=== PATIENT | female | born 1970 | race Caucasian/White ===

== ENCOUNTER 2016-11-19 17:23 | Inpatient (IN) | payer SELFPAY ==
[~2016-11-19] VITALS: Ht 157.5 cm; Wt 66.8 kg
[2016-11-19] MEDS ORDERED: SODIUM CHLORIDE 0.9% 1,000 ML IV ONE (17:59)
[2016-11-19] MEDS ORDERED: HYDROmorphone 1 MG/ML, 1ML IV ONE (18:00)
[2016-11-19] MEDS ORDERED: ONDANSETRON 2MG/ML, 2ML IVPush ONE (18:00)
[2016-11-19] MEDS ORDERED: SODIUM CHLORIDE FLUSH 10ML SYR IVF ONE (18:00)
[2016-11-19 18:44] LABS: BLOOD UREA NITROGEN 12 mg/dL (7-18)
[2016-11-19 18:49] LABS: ASPARTATE AMINO TRANSFERASE 9 U/L (15-37)
[2016-11-19 19:07] LABS: DIFF TOTAL CELLS COUNTED 100 CELL DIFF
[2016-11-19 19:10] LABS: VERIFY COUNTS? YES
[2016-11-19] MEDS ORDERED: ONDANSETRON 2MG/ML, 2ML ONE ×2 (20:04→21:48)
[2016-11-19] MEDS ORDERED: HYDROmorphone 1 MG/ML, 1ML ONE (20:04)
[2016-11-19] MEDS ORDERED: OMNIPAQUE 350 MG/ML, 100ML BOTTLE ONE (20:32)
[2016-11-19] MEDS ORDERED: CEFTRIAXONE PMX 1GM/50ML 50 ML IV ONE (21:00)
[2016-11-19] MEDS ORDERED: ACETAMINOPHEN 325 MG TABLET PO PRN (21:30)
[2016-11-19] MEDS ORDERED: HYDROmorphone 1 MG/ML, 1ML IV PRN (21:30)
[2016-11-19] MEDS ORDERED: ONDANSETRON 2MG/ML, 2ML IVPush PRN (21:30)
[2016-11-19] MEDS ORDERED: LABETALOL 5MG/ML, 20ML IV PRN (21:30)
[2016-11-19] MEDS ORDERED: EPHEDRINE 50 MG/ML, 1ML IVPush PRN (21:30)
[2016-11-19] MEDS ORDERED: OXYcodone 5 MG/5 ML ORAL.SOL UDC PO PRN (21:30)
[2016-11-19] MEDS ORDERED: hydrALAzine 20 MG/ML, 1ML IV PRN (21:30)
[2016-11-19] MEDS ORDERED: METOPROLOL 1 MG/ML, 5ML IV PRN (21:30)
[2016-11-19] MEDS ORDERED: METRONIDAZOLE PMX 500MG/100ML 100 ML IV ONE (21:30)
[2016-11-19] MEDS ORDERED: MEPERIDINE/PF 25MG/0.5ML IVPush PRN (21:30)
[2016-11-19] MEDS ORDERED: ALBUTEROL SULFATE 2.5 MG/3 ML NPPB PRN (21:30)
[2016-11-19] MEDS ORDERED: EPINEPHRINE 1 MG/ML, 1ML ONE (21:36)
[2016-11-19] MEDS ORDERED: BUPIVACAINE/PF 0.5% ONE (21:36)
[2016-11-19] MEDS ORDERED: SUCCINYLCHOLINE 20 MG/ML, 10ML ONE (21:48)
[2016-11-19] MEDS ORDERED: ROCURONIUM 10 MG/ML ONE (21:48)
[2016-11-19] MEDS ORDERED: GLYCOPYRROLATE 0.2MG/1ML ONE (21:48)
[2016-11-19] MEDS ORDERED: KETOROLAC 30 MG/1 ML ONE (21:48)
[2016-11-19] MEDS ORDERED: PROPOFOL 10 MG/ML, 20ML ONE (21:48)
[2016-11-19] MEDS ORDERED: NEOSTIGMINE 1 MG/ML, 10ML ONE (21:48)
[2016-11-19] MEDS ORDERED: FENTANYL PF 100 MCG/2ML ONE ×2 (21:59→22:55)
[2016-11-19] MEDS ORDERED: OXYcodone 5 MG/5 ML ORAL.SOL UDC ONE (22:55)
[2016-11-19] MEDS ORDERED: ACETAMINOPHEN 650 MG/20.3 ML UDC ONE (22:55)
[2016-11-19] MEDS: FENTANYL PF 100 MCG/2ML IV PRN ×2 (23:00→23:17)
[2016-11-20] MEDS: MORPHINE MC SCH ×3 (00:30→15:07)
[2016-11-20] MEDS: OXYcodone/APAP 5/325MG TABLET PO PRN ×6 (00:36→20:48)
[2016-11-20] MEDS: PIPERACILLIN/TAZO/PMX 3.375GM 50 ML IV SCH ×4 (01:23→21:59)
[2016-11-20] MEDS ORDERED: IBUP800T PO (03:32)
[2016-11-20] MEDS ORDERED: OXYC-223 PO (03:32)
[2016-11-20] MEDS ORDERED: AMOX1TAB64 PO (03:33)
[2016-11-20 04:13] VITALS: BP 96/61
[2016-11-20 07:20] VITALS: BP 89/59
[2016-11-20 07:32] VITALS: BP 102/56
[2016-11-20] MEDS: ONDANSETRON 2MG/ML, 2ML IV PRN ×2 (13:34→20:00)
[2016-11-20 14:26] VITALS: BP 104/66
[2016-11-20 19:43] VITALS: BP 100/65
[2016-11-21] MEDS: MORPHINE MC SCH ×3 (00:30→07:37)
[2016-11-21] MEDS: OXYcodone/APAP 5/325MG TABLET PO PRN ×3 (01:08→21:55)
[2016-11-21 02:29] VITALS: BP 98/59
[2016-11-21] MEDS: PIPERACILLIN/TAZO/PMX 3.375GM 50 ML IV SCH ×2 (03:43→10:55)
[2016-11-21 05:03] LABS: ASPARTATE AMINO TRANSFERASE 22 U/L (15-37); BLOOD UREA NITROGEN 12 mg/dL (7-18)
[2016-11-21] MEDS: ONDANSETRON 2MG/ML, 2ML IV PRN ×2 (06:37→10:55)
[2016-11-21 07:07] VITALS: BP 101/50
[2016-11-21 12:37] VITALS: BP 103/65
[2016-11-21] MEDS ORDERED: HYDROmorphone 1 MG/ML, 1ML IV PRN (13:30)
[2016-11-21] MEDS ORDERED: PROMETHAZINE 25 MG/ML, 1ML IM PRN (13:30)
[2016-11-21] MEDS: AMOXICILLIN/CLAV 875-125MG TABLET PO SCH (15:10)
[2016-11-21] MEDS ORDERED: POTASSIUM CHLORIDE 40 MEQ in SODIUM CHLORIDE 0.9% 500 ML IV ONE (16:00)
[2016-11-21 20:21] VITALS: BP 111/68
[2016-11-22] MEDS: MORPHINE MC SCH ×2 (00:30→07:18)
[2016-11-22 01:34] VITALS: BP 115/73
[2016-11-22] MEDS: OXYcodone/APAP 5/325MG TABLET PO PRN ×3 (01:51→16:32)
[2016-11-22] MEDS: ONDANSETRON 2MG/ML, 2ML IV PRN (01:53)
[2016-11-22] MEDS: AMOXICILLIN/CLAV 875-125MG TABLET PO SCH ×2 (03:02→16:32)
[2016-11-22 05:26] LABS: BLOOD UREA NITROGEN 8 mg/dL (7-18)
[2016-11-22 08:39] VITALS: BP 129/79
[2016-11-22 13:19] VITALS: BP 118/76
[2016-11-22] MEDS ORDERED: MAGNESIUM HYDROXIDE 8%, 30ML UDC PO PRN (13:30)
[2016-11-22] MEDS ORDERED: BISACODYL 10 MG SUPP PR PRN (13:30)
== END 2016-11-22 16:45 | disposition home or self-care (01) | DRG 340 ==
LOC: OR 21:05 → INTOOBSV 21:12 → EDIP 21:12 → 4NOR 23:50 → OBSVTOIN 11-21 18:03 → UNDODISOB 11-22 16:45
PROVIDERS: ADMIT Surgery; ATTEND Surgery
PROC: 0DTJ4ZZ Resection of Appendix, Percutaneous Endoscopic Approach (ICD-10-PCS; principal; 2016-11-20)
DX: K35.2 Acute appendicitis with generalized peritonitis (principal)
CPT/HCPCS: 36415; 74177; 80048; 80053; 83605; 83690; 84145; 84703; 85025; 87040; 88304; 96361; 96374; 96375; G0378; J0171; J0696; J1170; J1885; J2405; J2543; J2704; J2710; J3010; J3480; J3490; Q9967; J0330; J7030; J7040

== ENCOUNTER 2016-12-02 16:53 | Inpatient (IN) | payer SELFPAY ==
[~2016-12-02] VITALS: Ht 152.4 cm; Wt 60.1 kg
[~2016-12-02 16:53] MED LIST: AMOX1TAB64 PO; IBUP800T PO; OXYC-223 PO
[2016-12-02] MEDS ORDERED: ONDANSETRON 2MG/ML, 2ML IVPush ONE (18:00)
[2016-12-02] MEDS ORDERED: SODIUM CHLORIDE FLUSH 10ML SYR IVF ONE ×2 (18:00)
[2016-12-02] MEDS ORDERED: HYDROmorphone 1 MG/ML, 1ML ONE ×2 (18:18→20:17)
[2016-12-02] MEDS ORDERED: ONDANSETRON 2MG/ML, 2ML ONE (18:19)
[2016-12-02] MEDS: HYDROmorphone 1 MG/ML, 1ML IVPush PRN ×2 (18:23→20:20)
[2016-12-02 18:45] LABS: ASPARTATE AMINO TRANSFERASE 31 U/L (15-37); BLOOD UREA NITROGEN 9 mg/dL (7-18)
[2016-12-02] MEDS ORDERED: OMNIPAQUE 350 MG/ML, 100ML BOTTLE ONE (19:20)
[2016-12-02] MEDS ORDERED: metroNIDAZOLE 500 MG TABLET PO ONE (19:30)
[2016-12-02] MEDS ORDERED: SODIUM CHLORIDE 0.9% 1,000ML IVBOLUS ONE (20:30)
[2016-12-02] MEDS ORDERED: PIPERACILLIN/TAZO/PMX 3.375GM 50 ML ONE (20:58)
[2016-12-02] MEDS ORDERED: PIPERACILLIN/TAZO/PMX 3.375GM 50 ML IV ONE (21:00)
[2016-12-02 22:15] VITALS: BP 106/68
[2016-12-02] MEDS: SODIUM CHLORIDE 0.9% 1,000 ML IV SCH (23:33)
[2016-12-03 03:10] VITALS: BP 122/75
[2016-12-03] MEDS ORDERED: HYDROmorphone 1 MG/ML, 1ML ONE (03:32)
[2016-12-03] MEDS: PIPERACILLIN/TAZO/PMX 3.375GM 50 ML IV SCH ×4 (03:35→20:14)
[2016-12-03] MEDS: HYDROmorphone 2 MG/ML, 1ML IVPush PRN ×6 (03:35→23:47)
[2016-12-03 04:50] LABS: BLOOD UREA NITROGEN 7 mg/dL (7-18)
[2016-12-03] MEDS: SODIUM CHLORIDE 0.9% 1,000 ML IV SCH ×2 (08:01→20:14)
[2016-12-03] MEDS: ONDANSETRON 2MG/ML, 2ML IVPush PRN ×3 (10:01→23:47)
[2016-12-03] MEDS: METRONIDAZOLE PMX 500MG/100ML 100 ML IV SCH ×2 (10:47→18:00)
[2016-12-03] MEDS ORDERED: LIDOCAINE 1%, 20ML ONE (10:53)
[2016-12-03] MEDS ORDERED: NALOXONE 1 MG/ML, 2ML ONE (11:21)
[2016-12-03] MEDS ORDERED: MIDAZOLAM 1 MG/ML, 5ML ONE (11:21)
[2016-12-03] MEDS ORDERED: FLUMAZENIL 0.1 MG/1 ML, 5ML ONE (11:21)
[2016-12-03] MEDS ORDERED: FENTANYL PF 100 MCG/2ML ONE (11:21)
[2016-12-03 14:00] VITALS: BP 109/71
[2016-12-03] MEDS ORDERED: OXYcodone/APAP 5/325MG TABLET PO PRN (16:30)
[2016-12-03 19:35] VITALS: BP 106/65
[2016-12-04] MEDS: METRONIDAZOLE PMX 500MG/100ML 100 ML IV SCH ×3 (01:44→18:18)
[2016-12-04 02:33] VITALS: BP 95/60
[2016-12-04] MEDS: SODIUM CHLORIDE 0.9% 1,000 ML IV SCH ×3 (03:00→15:34)
[2016-12-04] MEDS: PIPERACILLIN/TAZO/PMX 3.375GM 50 ML IV SCH ×4 (03:41→20:45)
[2016-12-04 05:13] LABS: ASPARTATE AMINO TRANSFERASE 24 U/L (15-37); BLOOD UREA NITROGEN 5 mg/dL (7-18)
[2016-12-04 05:26] VITALS: BP 103/65
[2016-12-04] MEDS: HYDROmorphone 2 MG/ML, 1ML IVPush PRN ×5 (05:28→23:37)
[2016-12-04] MEDS: ONDANSETRON 2MG/ML, 2ML IVPush PRN ×2 (05:28→13:27)
[2016-12-04 07:05] VITALS: BP 103/63
[2016-12-04 13:27] VITALS: BP 110/71
[2016-12-04 19:47] VITALS: BP 104/69
[2016-12-05] MEDS: METRONIDAZOLE PMX 500MG/100ML 100 ML IV SCH (01:43)
[2016-12-05 02:00] VITALS: BP 119/77
[2016-12-05] MEDS: PIPERACILLIN/TAZO/PMX 3.375GM 50 ML IV SCH ×2 (03:50→09:23)
[2016-12-05 04:30] VITALS: BP 113/74
[2016-12-05 04:49] LABS: ASPARTATE AMINO TRANSFERASE 12 U/L (15-37); BLOOD UREA NITROGEN 5 mg/dL (7-18)
[2016-12-05] MEDS: SODIUM CHLORIDE 0.9% 1,000 ML IV SCH ×2 (04:52→22:21)
[2016-12-05] MEDS: ONDANSETRON 2MG/ML, 2ML IVPush PRN ×2 (05:36→11:48)
[2016-12-05] MEDS: HYDROmorphone 2 MG/ML, 1ML IVPush PRN (05:36)
[2016-12-05 05:59] LABS: IS PT STATUS REG ER OR PRE ER? NO
[2016-12-05 07:32] VITALS: BP 109/64
[2016-12-05] MEDS ORDERED: ZOLPIDEM 5MG TABLET PO PRN (09:30)
[2016-12-05 11:17] VITALS: BP 118/76
[2016-12-05] MEDS: metroNIDAZOLE 500 MG TABLET PO SCH ×2 (11:29→18:09)
[2016-12-05] MEDS: MEROPENEM 1 GM in SODIUM CHLORIDE 0.9% 100 ML IV SCH ×2 (11:29→18:09)
[2016-12-05] MEDS: BISACODYL 10 MG SUPP PR PRN (11:30)
[2016-12-05 12:02] LABS: IS PT STATUS REG ER OR PRE ER? NO
[2016-12-05 13:30] VITALS: BP 113/66
[2016-12-05] MEDS: ENOXAPARIN 40 MG/0.4 ML SQ SCH (15:26)
[2016-12-05 18:04] LABS: IS PT STATUS REG ER OR PRE ER? NO
[2016-12-05 21:42] VITALS: BP 111/72
[2016-12-05] MEDS: HYDROmorphone 2MG TABLET PO PRN (22:20)
[2016-12-05] MEDS ORDERED: SODIUM CHLORIDE 0.9% 1,000 ML IV SCH (22:56)
[2016-12-06 01:46] VITALS: BP 110/72
[2016-12-06] MEDS: metroNIDAZOLE 500 MG TABLET PO SCH ×3 (02:34→18:17)
[2016-12-06] MEDS: MEROPENEM 1 GM in SODIUM CHLORIDE 0.9% 100 ML IV SCH ×3 (02:34→18:17)
[2016-12-06] MEDS: HYDROmorphone 2MG TABLET PO PRN ×3 (05:48→18:17)
[2016-12-06 09:10] VITALS: BP 113/72
[2016-12-06] MEDS: SODIUM CHLORIDE 0.9% 1,000 ML IV SCH (14:06)
[2016-12-06] MEDS: ENOXAPARIN 40 MG/0.4 ML SQ SCH (14:06)
[2016-12-06 15:50] VITALS: BP 123/64
[2016-12-06 20:46] VITALS: BP 121/82
[2016-12-07] MEDS: HYDROmorphone 2MG TABLET PO PRN ×2 (00:48→14:14)
[2016-12-07] MEDS: ONDANSETRON 2MG/ML, 2ML IVPush PRN (00:48)
[2016-12-07 01:39] VITALS: BP 120/75
[2016-12-07] MEDS: MEROPENEM 1 GM in SODIUM CHLORIDE 0.9% 100 ML IV SCH ×3 (01:44→17:55)
[2016-12-07] MEDS: metroNIDAZOLE 500 MG TABLET PO SCH ×3 (01:45→17:54)
[2016-12-07 07:17] VITALS: BP 124/83
[2016-12-07] MEDS ORDERED: DIPHENHYDRAMINE 25 MG CAPSULE PO PRN (09:00)
[2016-12-07 13:05] VITALS: BP 120/78
[2016-12-07] MEDS: ENOXAPARIN 40 MG/0.4 ML SQ SCH (14:14)
[2016-12-07 19:47] VITALS: BP 103/68
[2016-12-08] MEDS: HYDROmorphone 2MG TABLET PO PRN (00:45)
[2016-12-08] MEDS: MEROPENEM 1 GM in SODIUM CHLORIDE 0.9% 100 ML IV SCH ×3 (01:44→18:45)
[2016-12-08] MEDS: metroNIDAZOLE 500 MG TABLET PO SCH ×3 (02:08→18:51)
[2016-12-08 02:55] VITALS: BP 108/70
[2016-12-08 07:36] LABS: BLOOD UREA NITROGEN 6 mg/dL (7-18)
[2016-12-08 08:18] VITALS: BP 124/63
[2016-12-08] MEDS: ENOXAPARIN 40 MG/0.4 ML SQ SCH (13:19)
[2016-12-08] MEDS: HYDROmorphone 2 MG/ML, 1ML IVPush PRN (13:19)
[2016-12-08 14:15] VITALS: BP 122/72
[2016-12-08] MEDS ORDERED: GADOBUTROL 10 MMOL/10 ML VIAL ONE (16:44)
[2016-12-08 18:55] VITALS: BP 127/80
[2016-12-09 00:51] VITALS: BP 117/77
[2016-12-09] MEDS: metroNIDAZOLE 500 MG TABLET PO SCH ×3 (02:11→17:35)
[2016-12-09] MEDS: MEROPENEM 1 GM in SODIUM CHLORIDE 0.9% 100 ML IV SCH ×3 (02:11→17:35)
[2016-12-09 06:12] LABS: BLOOD UREA NITROGEN 6 mg/dL (7-18)
[2016-12-09 07:45] VITALS: BP 111/75
[2016-12-09] MEDS: ENOXAPARIN 40 MG/0.4 ML SQ SCH (14:54)
[2016-12-09 14:59] VITALS: BP 103/57
[2016-12-09 19:08] VITALS: BP 99/63
[2016-12-10] MEDS: MEROPENEM 1 GM in SODIUM CHLORIDE 0.9% 100 ML IV SCH ×3 (02:11→18:20)
[2016-12-10 02:38] VITALS: BP 100/64
[2016-12-10] MEDS: HYDROmorphone 2MG TABLET PO PRN (05:11)
[2016-12-10 09:19] VITALS: BP 114/77
[2016-12-10] MEDS ORDERED: LACTULOSE 20 GM/30 ML UDC PO PRN (11:30)
[2016-12-10] MEDS ORDERED: MAGNESIUM HYDROXIDE 8%, 30ML UDC PO PRN (11:30)
[2016-12-10 13:19] VITALS: BP 94/57
[2016-12-10] MEDS: ENOXAPARIN 40 MG/0.4 ML SQ SCH (15:20)
[2016-12-10] MEDS: SENNA/DOCUSATE TABLET PO SCH (19:52)
[2016-12-10 19:56] VITALS: BP 97/67
[2016-12-11] MEDS: MEROPENEM 1 GM in SODIUM CHLORIDE 0.9% 100 ML IV SCH ×3 (01:48→18:41)
[2016-12-11 01:58] VITALS: BP 100/65
[2016-12-11 06:37] VITALS: BP 98/65
[2016-12-11] MEDS ORDERED: DOCUSATE 100 MG CAPSULE PO SCH (09:00)
[2016-12-11] MEDS: SENNA/DOCUSATE TABLET PO SCH ×2 (11:26→21:00)
[2016-12-11 14:35] VITALS: BP 94/59
[2016-12-11] MEDS: ENOXAPARIN 40 MG/0.4 ML SQ SCH (14:39)
[2016-12-11] MEDS: BISACODYL 10 MG SUPP PR PRN (14:40)
[2016-12-11 18:35] VITALS: BP 95/59
[2016-12-12] MEDS: MEROPENEM 1 GM in SODIUM CHLORIDE 0.9% 100 ML IV SCH (01:59)
[2016-12-12 02:42] VITALS: BP 92/56
[2016-12-12] MEDS: HYDROmorphone 2MG TABLET PO PRN (06:13)
[2016-12-12 06:45] VITALS: BP 106/72
[2016-12-12] MEDS ORDERED: CIPROFLOXACIN 500 MG TABLET PO SCH (09:00)
[2016-12-12] MEDS ORDERED: SULFAMETH./TRIMETHOPRIM DS 800MG/160MG TABLET PO SCH (09:00)
[2016-12-12] MEDS: metroNIDAZOLE 500 MG TABLET PO SCH ×2 (10:07→16:31)
[2016-12-12] MEDS: SENNA/DOCUSATE TABLET PO SCH (10:07)
[2016-12-12] MEDS ORDERED: HYDR2TAB40 PO (11:12)
[2016-12-12] MEDS ORDERED: SULF1TAB3 PO (11:12)
[2016-12-12] MEDS ORDERED: CIPR500T87 PO (11:12)
[2016-12-12] MEDS ORDERED: METR500T PO (11:12)
[2016-12-12] MEDS: ENOXAPARIN 40 MG/0.4 ML SQ SCH (14:00)
[2016-12-12 16:25] VITALS: BP 100/61
== END 2016-12-12 16:30 | disposition home or self-care (01) | DRG 371 ==
LOC: ED 20:37 → EDIP 20:38 → ED 21:07 → 3NW 22:02 → 4NOR 12-05 10:37
PROVIDERS: ADMIT Internal Medicine; ATTEND Internal Medicine
PROC: 0W9G30Z Drainage of Peritoneal Cavity with Drainage Device, Percutaneous Approach (ICD-10-PCS; principal; 2016-12-03)
DX: K65.1 Peritoneal abscess (principal); K75.0 Abscess of liver; J98.11 Atelectasis; A59.01 Trichomonal vulvovaginitis; D64.9 Anemia, unspecified; K59.00 Constipation, unspecified; Z90.49 Acquired absence of other specified parts of digestive tract; Z88.5 Allergy status to narcotic agent; Z82.49 Family history of ischemic heart disease and other diseases of the circulatory system
CPT/HCPCS: 36415; 49405; 74177; 74183; 75989; 80048; 80053; 81001; 83605; 83690; 84145; 84484; 84703; 85025; 87040; 87070; 87075; 87077; 87086; 87186; 87205; 93005; 96365; 96375; 96376; 99156; 99157; A9585; C1894; J1170; J1650; J2185; J2250; J2405; J2543; J3010; J3490; Q9967; C1729; C1769; J2310; J7030